=== PATIENT | female | born 1945 | race Caucasian/White ===

== ENCOUNTER → 2018-04-09 | Outpatient (CLI) | payer MEDICARE, OTHER ==
--- NOTE | 2018-04-09 12:26 | RADIOLOGY IMAGING REPORT ---
[place] [facility] [place] NAME: Marita Sneed : 1945 MR: [id number] V: [id number] EXAM DATE: ORDERING PHYSICIAN: KARIN BOWEN TECHNOLOGIST: [place] [facility] [place] S[place] : 1945 Visit/Account:[id number] Date of Sevice: 04/09/2018 Technique: LUMBAR SPINE 2 OR 3 VIEW HISTORY: Low back pain Comparison studies: None FINDINGS: There is no acute fracture. The 5 nonrib-bearing lumbar type vertebral bodies are present. Noted is a mild levoscoliotic curvature of the lumbar spine. Multilevel degenerative changes are n oted within the mid and lower lumbar spine characterized by intervertebral disc space narrowing and e ndplate osteophytosis. The vertebral body heights are maintained. IMPRESSION: 1. Degenerative changes as described above. Report Dictated By: Bakari Louie DO at 04/09/2018 12:21 PM Report E-Signed By: Bakari Louie DO at 04/09/2018 12:22 PM WSN:[id number]
== END ==
LOC: RAD 11:22
PROVIDERS: ATTEND Physician Assistant Medical
DX: M41.86 Other forms of scoliosis, lumbar region (principal); M25.78 Osteophyte, vertebrae
CPT/HCPCS: 72100

== ENCOUNTER → 2018-04-15 | Outpatient (CLI) | payer MEDICARE, OTHER ==
--- NOTE | 2018-04-15 13:29 | RADIOLOGY IMAGING REPORT ---
[place] [facility] [place] NAME: Marita Sneed : 1945 MR: [id number] V: [id number] EXAM DATE: ORDERING PHYSICIAN: ZULEMA HOLDEN TECHNOLOGIST: Location: [facility] Patient: Marita Sneed : 1945 Visit/Account:[id number] Date of Sevice: 04/15/2018 ORBITS FOREIGN BODY 1 VIEW INDICATION: Pre-MRI screening. Prior orbital surgery. COMPARISON: None available. FINDINGS: Single view of the orbits. No radiopaque foreign body projecting over the orbits. Multiple repaired teeth. Paranasal sinuses and mastoid air cells are well aerated. Leftward nasal septal deviation. Normal mineralization. IMPRESSION: No radiopaque foreign body over the orbits. Results were called to CHACORTA Billingsley tech at 04/15/2018 1:25 PM. Report Dictated By: Johan Desai MD at 04/15/2018 1:24 PM Report E-Signed By: Johan Desai MD at 04/15/2018 1:26 PM WSN:[id number]
--- NOTE | 2018-04-15 15:16 | RADIOLOGY IMAGING REPORT ---
FACILITY: [facility] - [place] PATIENT NAME: Marita Sneed : 1945 MR: [id number] V: [id number] EXAM DATE: ORDERING PHYSICIAN: ZULEMA HOLDEN TECHNOLOGIST: Location: [facility] Patient: Marita Sneed : 1945 Visit/Account:[id number] Date of Sevice: 04/15/2018 EXAMINATION: MRI lumbar spine without IV contrast HISTORY: Low back pain, radiculopathy lumbar region. COMPARISON: Lumbar spine radiographs from 04/09/2018. TECHNIQUE: Multi-planar, multi-sequence lumbar spine MRI was performed without intravenous contrast administration. FINDINGS: Alignment: There is leftward curvature of the lumbar spine with the apex at L2-3. No focal listhesis. Vertebral marrow signal: Mild reactive degenerative endplate changes, worst at L5-S1. Distal thoracic cord: Negative. Conus: negative, terminates at L1-2. Cauda equina: Negative. Paravertebral soft tissues: Negative. Visualized abdominal and pelvic structures: Negative. Disc spaces: There is disc desiccation of the visualized spine. Lower thoracic spine: Mild disc space narrowing with mild disc bulges at T10-11 and T11-12. No signif icant central canal or foraminal stenosis. L1-2: Mild concentric disc bulge, bilateral facet hypertrophy and ligamentum flavum laxity. No signif icant central canal or foraminal stenosis. L2-3: Moderate disc space narrowing with a mild concentric disc bulge, bilateral facet hypertrophy an d ligamentum flavum laxity. Mild central canal stenosis and mild to moderate bilateral foraminal sten osis. L3-4: Moderate disc space narrowing with a moderate concentric disc bulge, bilateral facet hypertroph y and ligamentum flavum laxity. Mild central canal stenosis and [id number] bilateral foraminal stenosis. L4-5: Moderate disc space narrowing with a mild concentric disc bulge, bilateral facet hypertrophy an d ligamentum flavum laxity. Trace effusion in the right facet joint. Mild central canal stenosis, mil d left lateral recess stenosis and [id number] bilateral foraminal stenosis. L5-S1: Moderate disc space narrowing with left lateral osteophyte and a mild concentric disc bulge. B ilateral facet hypertrophy with trace effusions in the facet joints. Mild left lateral recess stenosi s, mild right and moderate to severe left foraminal stenosis. IMPRESSION: 1. Multilevel degenerative disc disease and facet arthropathy is worst at L5-S1 where there is modera te to severe left foraminal stenosis. Please see the findings for description of individual level dis ease. 2. Degenerative levoscoliosis of the lumbar spine. Report Dictated By: Emerald Chappell MD at 04/15/2018 3:06 PM Report E-Signed By: Emerald Chappell MD at 04/15/2018 3:13 PM WSN:[email or web address]
== END ==
LOC: MRI 01:23
PROVIDERS: ATTEND Family Medicine
DX: M51.37 Other intervertebral disc degeneration, lumbosacral region (principal); M41.86 Other forms of scoliosis, lumbar region
CPT/HCPCS: 70030; 72148

== ENCOUNTER → 2018-06-01 | Outpatient (CLI) | payer MEDICARE, OTHER ==
--- NOTE | 2018-06-01 16:05 | RADIOLOGY IMAGING REPORT ---
FACILITY: [facility] - [place] PATIENT NAME: SHERYL DRISCOLL : [id number] MR: [id number] V: [id number] EXAM DATE: [id number] ORDERING PHYSICIAN: ZULEMA HOLDEN TECHNOLOGIST: Lizzeth Keith PROCEDURE:BILATERAL DIGITAL SCREENING MAMMOGRAM WITH CAD ASSISTED INTERPRETATION & 3D TOMOSYNTHESIS COMPARISON:Prior mammograms 04/28/17, 03/13/16, 03/08/15, 02/15/14, 04/07/12. INDICATIONS:SCREENING FINDINGS: Small amount of fibroglandular tissue is seen throughout the breasts. Most of the parenchymal pattern has remained stable allowing for difference in mammographic technique & patient positioning. There is however a focal area of irregular increased density in the upper portion of the Right breast in the Right MLO view in the posterior 1/3 for which Spot compression view is recommended. DIAGNOSTIC CATEGORY 0--INCOMPLETE: NEED ADDITIONAL IMAGING EVALUATION. RECOMMENDATIONS: ADDITIONAL MAMMOGRAPHIC VIEWS REQUIRED: RIGHT BREAST. IMPRESSION: BIRADS 0: Incomplete. Additional views of the Right breast recommended as described. Dictated by: Aixa Knox M.D. on 06/01/2018 at 15:37 Transcribed by: YEISON on 06/01/2018 at 15:45 Approved by: Aixa Knox M.D. on 06/01/2018 at 16:05 [facility]
== END ==
LOC: MAMO 01:10
PROVIDERS: ATTEND Family Medicine
DX: R92.2 Inconclusive mammogram (principal)
CPT/HCPCS: 77063; 77067

== ENCOUNTER → 2018-06-15 | Outpatient (CLI) | payer MEDICARE, OTHER ==
--- NOTE | 2018-06-16 09:07 | RADIOLOGY IMAGING REPORT ---
FACILITY: [facility] - [place] PATIENT NAME: SHERYL DRISCOLL : [id number] MR: [id number] V: [id number] EXAM DATE: [id number] ORDERING PHYSICIAN: ZULEMA HOLDEN TECHNOLOGIST: Lizzeth Keith PROCEDURE:RIGHT DIGITAL DIAGNOSTIC MAMMOGRAM WITH CAD ASSISTED INTERPRETATION & 3D TOMOSYNTHESIS COMPARISON:Prior mammograms 06/01/18, 04/28/17, 03/13/16, 03/08/15, 02/15/14, 04/07/12. INDICATIONS:FURTHER EVAL FINDINGS: The patient returns for Spot compression views in the Right MLO projection with 3D Tomosynthesis. The patient also received a repeat Right MLO full field view. The focal area of increased density in the upper portion Right breast on the recent Right MLO view in the posterior 1/3 appeared to represent a fatty replaced lymph node on the additional images. DIAGNOSTIC CATEGORY 2--BENIGN FINDING. RECOMMENDATIONS: ROUTINE MAMMOGRAM AND CLINICAL EVALUATION. IMPRESSION: BIRADS 2: Benign finding. There is a fatty replaced lymph node in the upper posterior 1/3 of the Right breast. Dictated by: Aixa Knox M.D. on 06/15/2018 at 16:24 Transcribed by: YEISON on 06/16/2018 at 8:52 Approved by: Aixa Knox M.D. on 06/16/2018 at 9:05 [facility]
== END ==
LOC: MAMO 00:49
PROVIDERS: ATTEND Family Medicine
DX: R59.9 Enlarged lymph nodes, unspecified (principal)
CPT/HCPCS: 77061; 77065

== ENCOUNTER → 2018-11-12 | Outpatient (CLI) | payer MEDICARE, OTHER ==
--- NOTE | 2018-11-12 16:22 | RADIOLOGY IMAGING REPORT ---
FACILITY: [facility] PATIENT NAME: Marita Sneed : 1945 MR: [id number] V: [id number] EXAM DATE: ORDERING PHYSICIAN: ZULEMA HOLDEN TECHNOLOGIST: Location: [facility] Patient: Marita Sneed : 1945 Visit/Account:[id number] Date of Sevice: 11/12/2018 DEXA Scan Clinical history: Osteoporosis screening. Comparison: 11/24/2011. LUMBAR SPINE: Bone mineral density (BMD) measured in the lumbar spine correlates with a T-score of 2.2 and a Z-scor e of 4.0 which is normal as defined by the World Health Organization. The corresponding risk of fra cture in the lumbar spine is not increased compared with a young adult reference population. Lumbar spine bone density has increased by 4.6% compared to previous. Note that degenerative changes may f alsely increase bone density. LEFT FEMORAL NECK: Bone mineral density (BMD) measured in the femoral neck correlates with a T-score of -0.5 and a Z-sco re of 4.7 which is normal as defined by the World Health Organization. Bone mineral density (BMD) measured in the femoral neck region is 0.968 g/cm2. LEFT TOTAL HIP: Total hip bone mineral density (BMD) correlates with a T-score of 0.3 and a Z-score of 2.0 which is n ormal as defined by the World Health Organization. Total hip bone density has decreased by 1.6% com pared to previous. The corresponding risk of fracture in the hip is not increased compared with a young adult reference population. IMPRESSION: 1. Lumbar spine: Normal bone density. Lumbar spine bone density has increased by 4.6% compared to previous. 2. Left femoral neck: Normal bone density. 3. Left femoral neck: Bone Mineral Density is 0.968 g/cm2. 4. Left total hip: Normal bone density. Total hip bone density has decreased by 1.6% compared to p revious. FRAX WHO Fracture Risk Assessment Tool link: <http://www.shef.ac.uk/FRAX/tool.jsp?locationValue=9> PLEASE NOTE: 1) The World Health Organization defines low BMD as follows: T-score Normal > -1 Osteopenia < -1 and > -2.5 Osteoporosis < -2.5 without fractures Established osteoporosis < -2.5 with fractures 2) In general, you may wish to consider: Diagnosis Treatment Follow-up DEXA Normal BMD Prevention 2-3 years Osteopenia Prevention/therapy 1-2 years Osteoporosis Therapy Yearly 3) Fracture risk estimated from the T-score is more accurate for vertebral fractures (often spontane ous) than for hip fractures. Report Dictated By: Dany Worthington MD at 11/12/2018 4:16 PM Report E-Signed By: Dany Worthington MD at 11/12/2018 4:18 PM WSN:[email or web address]
== END ==
LOC: RAD 02:47
PROVIDERS: ATTEND Family Medicine
DX: N95.9 Unspecified menopausal and perimenopausal disorder (principal)
CPT/HCPCS: 77080